=== PATIENT | female | born 1990 | race Caucasian/White ===

== ENCOUNTER 2019-08-26 00:23 | Emergency (ER) | payer SELFPAY ==
[2019-08-26] MEDS ORDERED: NA CHLORIDE 0.9% 1,000 ML ONE (00:31)
[2019-08-26] MEDS ORDERED: FAMOTIDINE 20 MG/2 ML VIAL IV ONE (00:31)
[2019-08-26] MEDS ORDERED: METHYLPREDNISOLONE 125 MG INJ ONE (00:31)
[2019-08-26] MEDS ORDERED: DIPHENHYDRAMINE 50 MG/ML VIAL ONE (00:31)
[2019-08-26] MEDS ORDERED: ALBUTEROL 2.5 MG/3 ML NEB SOL ONE (00:31)
[2019-08-26] MEDS ORDERED: IPRATROPIUM BROM 0.5MG/2.5ML ONE (00:32)
--- NOTE | 2019-08-26 01:01 | EDPHYS ---
Physician Documentation [facility] Name: Jessika Avila Age: 28 yrs Sex: Female : 1990 Arrival Date: 08/26/2019 Time: 00:27 Bed 6 Private MD: ED Physician Delfino Victoria HPI: 08/26 00:45 This 28 yrs old Female presents to ER via Ambulatory with complaints of allergic cp reaction. 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 - Social history:: Smoking status: Patient uses tobacco products, smokes one pack cigarettes per day. Patient uses alcohol, occasionally. Patient/guardian denies using street drugs. - Ebola Screening: : Patient negative for fever greater than or equal to 101.5 degrees Fahrenheit, and additional compatible Ebola Virus Disease symptoms Patient denies exposure to infectious person Patient denies travel to an Ebola-affected area in the 21 days before illness onset. Vital Signs: 00:23 BP 130 / 74; Pulse 88; Resp 18; Pulse Ox 100% on R/A; Weight 54.43 kg (R); Height 5 ft. fc 6 in. (167.64 cm) (R); Pain 9/10; 01:20 BP 115 / 75; Pulse 85; Resp 17; Temp 98; Pulse Ox 99% on R/A; rr5 00:23 Body Mass Index 19.37 (54.43 kg, 167.64 cm) MDM: 00:31 Patient medically screened. [facility] 08/26 00:34 Order name: IV; Complete Time: 00:38 cp Administered Medications: 00:20 Drug: NS 0.9% 1000 ml Route: IV; Rate: 1 bolus; Site: left antecubital; rr5 01:20 Follow up: Response: No adverse reaction; IV Status: Completed infusion; IV Intake: rr5 1000ml 00:21 Drug: Pepcid 20 mg Route: IVP; Site: left antecubital; rr5 01:20 Follow up: Response: No adverse reaction; Marked relief of symptoms rr5 00:23 Drug: Benadryl 50 mg Route: IVP; Site: left antecubital; rr5 01:20 Follow up: Response: No adverse reaction; Marked relief of symptoms rr5 00:25 Drug: Albuterol - atroVENT (3:1) (2.5 mg - 0.5 mg) 3 ml Route: Nebulizer; rr5 01:20 Follow up: Response: No adverse reaction; Marked relief of symptoms rr5 00:39 Drug: SOLU-Medrol 125 mg Route: IVP; Site: left antecubital; rr5 01:20 Follow up: Response: No adverse reaction; Marked relief of symptoms rr5 Disposition: 08/26/19 01:00 Discharged to Home. Impression: Allergy, unspecified. - Condition is Stable. - Discharge Instructions: Anaphylactic Reaction, Adult. - Prescriptions for Albuterol Sulfate 90 mcg/actuation - inhale 1-2 puff by INHALATION route every 4-6 hours; 1 Inhaler. Prednisone 20 mg Oral Tablet - take 2 tablet by ORAL route once daily for 5 days; 10 tablet. Pepcid 20 mg Oral Tablet - take 1 tablet by ORAL route 2 times per day for 5 days; 10 tablet. EpiPen 0.3 mg Injection auto- injector - inject 1 pen by INTRAMUSCULAR route as directed Inject into the outer portion of the thigh, through clothing if necessary. Indicated in the emergency treatment of allergic reactions; 2 Kit. - Medication Reconciliation Form, Thank You Letter, Antibiotic Education, Prescription Opioid Use, Work release form form. - Follow up: Private Physician; When: 1 - 2 days; Reason: Worsening of condition. - Problem is new. - Symptoms have improved. Addendum: 08/27/2019 07:55 Co-signature as Attending Physician, Delfino Victoria MD I agree with the assessment and c estrada plan of care. Signatures: Delfino Victoria MD MD cha Chretien, Felicia RN RN Delfino Lopez PA PA cp Roque, Raymond, RN RN rr5 Corrections: (The following items were deleted from the chart) 08/26 01:28 01:00 08/26/2019 01:00 Discharged to Home. Impression: Allergy, unspecified. Condition rr5 is Stable. Forms are Medication Reconciliation Form, Thank You Letter, Antibiotic Education, Prescription Opioid Use. Follow up: Private Physician; When: 1 - 2 days; Reason: Worsening of condition. Problem is new. Symptoms have improved. cp
--- NOTE | 2019-08-26 01:01 | ER ---
Nurse's Notes [facility] Name: Jessika Avila Age: 28 yrs Sex: Female : 1990 Arrival Date: 08/26/2019 Time: 00:27 Bed 6 Private MD: Diagnosis: Allergy, unspecified Presentation: 08/26 00:23 Presenting complaint: Patient states: that she was drinking with some friends and then fc started to have hives, sore and swelling throat and shortness of breath. Transition of care: patient was not received from another setting of care. Onset of symptoms was August 26, 2019 at 00:10. Risk Assessment: Do you want to hurt yourself or someone else? Patient reports no desire to harm self or others. Initial Sepsis Screen: Does the patient meet any 2 criteria? No. Patient's initial sepsis screen is negative. Does the patient have a suspected source of infection? No. Patient's initial sepsis screen is negative. Care prior to arrival: None. 00:23 Method Of Arrival: Ambulatory fc 00:23 Acuity: GUME 3 Triage Assessment: 00:25 Respiratory: the patient has mild shortness of breath. 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 - Social history:: Smoking status: Patient uses tobacco products, smokes one pack cigarettes per day. Patient uses alcohol, occasionally. Patient/guardian denies using street drugs. - Ebola Screening: : Patient negative for fever greater than or equal to 101.5 degrees Fahrenheit, and additional compatible Ebola Virus Disease symptoms Patient denies exposure to infectious person Patient denies travel to an Ebola-affected area in the 21 days before illness onset. Screenin:23 Abuse screen: Denies threats or abuse. Nutritional screening: No deficits noted. fc Tuberculosis screening: No symptoms or risk factors identified. Fall Risk None identified. Assessment: 00:25 General: Appears in no apparent distress. uncomfortable, Behavior is calm, cooperative, rr5 appropriate for age, Reports i had a few drinks suddenly i feel like hives and i can't breath. Pain: Complains of pain in throat Pain does not radiate. Pain currently is 9 out of 10 on a pain scale. Quality of pain is described as aching, Pain began suddenly, Is continuous. Neuro: Level of Consciousness is awake, alert, obeys commands, Oriented to person, place, time, situation, Appropriate for age. Cardiovascular: Capillary refill < 3 seconds Patient's skin is warm and dry. Rhythm is regular. Respiratory: Reports I can't breath and Airway is patent Respiratory effort is even, unlabored, Respiratory pattern is regular, symmetrical, Breath sounds are clear. GI: No signs and/or symptoms were reported involving the gastrointestinal system. : No signs and/or symptoms were reported regarding the genitourinary system. EENT: Throat is clear with gag reflex present, Reports difficulty swallowing feels like my throat is swollen. 00:25 Derm: Skin is intact, is healthy with good turgor, Skin is red, on the face and rr5 extremities. Skin temperature is warm. Musculoskeletal: Circulation, motion, and sensation intact. Capillary refill < 3 seconds. 01:22 Reassessment: Patient appears in no apparent distress at this time. Patient is alert, rr5 oriented x 3, equal unlabored respirations, skin warm/dry/pink. discharge instruction given and explained without complaints made, verbalized understanding. Patient states feeling better. Patient states symptoms have improved. Vital Signs: 00:23 BP 130 / 74; Pulse 88; Resp 18; Pulse Ox 100% on R/A; Weight 54.43 kg (R); Height 5 ft. fc 6 in. (167.64 cm) (R); Pain 9/10; 01:20 BP 115 / 75; Pulse 85; Resp 17; Temp 98; Pulse Ox 99% on R/A; rr5 00:23 Body Mass Index 19.37 (54.43 kg, 167.64 cm) ED Course: 00:23 No provider procedures requiring assistance completed. 00:23 Arm band placed on Patient placed in an exam room, on a stretcher. 00:23 Patient has correct armband on for positive identification. Placed in gown. Bed in low fc position. Call light in reach. Pulse ox on. NIBP on. 00:27 Patient arrived in ED. 00:27 Inserted saline lock: 20 gauge in left antecubital area, using aseptic technique. fc ,using aseptic technique. per Pawel VASQUEZ. 00:31 Delfino Bryant PA is PHCP. cp 00:31 Delfino Victoria MD is Attending Physician. cp 00:35 Triage completed. fc 00:38 Pawel Kenney RN is Primary Nurse. rr5 01:27 IV discontinued, intact, bleeding controlled, No redness/swelling at site. Pressure rr5 dressing applied. Administered Medications: 00:20 Drug: NS 0.9% 1000 ml Route: IV; Rate: 1 bolus; Site: left antecubital; rr5 01:20 Follow up: Response: No adverse reaction; IV Status: Completed infusion; IV Intake: rr5 1000ml 00:21 Drug: Pepcid 20 mg Route: IVP; Site: left antecubital; rr5 01:20 Follow up: Response: No adverse reaction; Marked relief of symptoms rr5 00:23 Drug: Benadryl 50 mg Route: IVP; Site: left antecubital; rr5 01:20 Follow up: Response: No adverse reaction; Marked relief of symptoms rr5 00:25 Drug: Albuterol - atroVENT (3:1) (2.5 mg - 0.5 mg) 3 ml Route: Nebulizer; rr5 01:20 Follow up: Response: No adverse reaction; Marked relief of symptoms rr5 00:39 Drug: SOLU-Medrol 125 mg Route: IVP; Site: left antecubital; rr5 01:20 Follow up: Response: No adverse reaction; Marked relief of symptoms rr5 Intake: 01:20 IV: 1000ml; Total: 1000ml. rr5 Outcome: 01:00 Discharge ordered by . cp 01:27 Discharged to home ambulatory. rr5 01:27 Condition: stable 01:27 Discharge instructions given to patient, Instructed on discharge instructions, follow up and referral plans. medication usage, Demonstrated understanding of instructions, follow-up care, medications, Prescriptions given X 4. 01:28 Patient left the ED. rr5 Signatures: Lesly Martinez RN RN Delfino Bryant PA PA cp Roque, Raymond, RN RN rr5 Corrections: (The following items were deleted from the chart) 01:27 00:25 Pain: Denies pain. rr5 rr5
[2019-08-26 02:31] VITALS: BP 130/74; O2SAT 100
--- OUTSIDE RECORDS SUMMARY | 2019-09-02 20:08 | XMS REPORT ---
:1990 [facility] Address [address] [place] [address] Dr. Medina [address] [place] [id number] Care Team Providers Name Role Phone Unavailable Unavailable Unavailable Problems This patient has no known problems. Allergies, Adverse Reactions, Alerts This patient has no known allergies or adverse reactions. Medications This patient has no known medications.
== END 2019-08-26 01:28 | disposition home or self-care (01) ==
LOC: ER 00:23
DX: T78.40XA Allergy, unspecified, initial encounter (principal); Z91.030 Bee allergy status; F17.210 Nicotine dependence, cigarettes, uncomplicated
CPT/HCPCS: 94640; 96361; 96374; 96375; 99284; J1200; J2930; J7030

== ENCOUNTER 2019-11-04 19:29 | Emergency (ER) | payer SELFPAY ==
--- OUTSIDE RECORDS SUMMARY | 2019-11-04 19:30 | XMS REPORT ---
:1990 [facility] Address [address] [place] [address] Dr. Medina [address] [place] [id number] Care Team Providers Name Role Phone Unavailable Unavailable Unavailable Problems This patient has no known problems. Allergies, Adverse Reactions, Alerts This patient has no known allergies or adverse reactions. Medications This patient has no known medications.
[2019-11-04 20:07] LABS: Urine Blood NEGATIVE (NEG); Urine Glucose NEGATIVE (NEG); Urine Protein NEGATIVE (NEG); Urine Specific Gravity 1.025 (1.005-1.030); Urine pH 5.5 (5.0-7.0)
[2019-11-04] MEDS ORDERED: ONDANSETRON 4 MG/2 ML VIAL ONE (20:24)
[2019-11-04] MEDS ORDERED: NA CHLORIDE 0.9% 1,000 ML ONE (20:24)
[2019-11-04] MEDS ORDERED: MORPHINE 4 MG/ML SYR ONE (20:24)
[2019-11-04 20:28] LABS: Absolute Lymphocytes (CBC) 1.6 K/uL (0.7-4.9); Basophils % 0.5 % (0-1.3); Hematocrit 37.8 % (36.0-45.0); Lymphocytes % 30.2 % (15.3-44.8); MPV 10.1 fL (7.6-11.3); RBC Red Blood Cell Count 4.18 M/uL (3.86-4.86)
--- NOTE | 2019-11-04 20:36 | RAD REPORT ---
EXAM DESCRIPTION: CTAbdomen Pelvis W Contrast - 11/04/2019 8:28 pm CLINICAL HISTORY: Abdominal pain. ABD PAIN COMPARISON: No comparisons TECHNIQUE: Biphasic CT imaging of the abdomen and pelvis was performed with 100 ml non-ionic IV cont rast. All CT scans are performed using dose optimization technique as appropriate and may include automated exposure control or mA/KV adjustment according to patient size. FINDINGS: The lung bases are clear. The liver demonstrates a 10 mm low-density lesion in the inferior anterior right lobe of the liver, n onspecific but likely benign. No aggressive liver lesion or biliary dilatation. Spleen, pancreas, adr enal glands and kidneys are within normal limits. No bowel obstruction, free air, free fluid or abscess. The appendix is normal. No evidence of signi ficant lymphadenopathy. 5 cm right ovarian cyst is suspected. Trace pelvic free fluid is seen. No suspicious bony findings. IMPRESSION: 5 cm right ovarian cyst is suspected with trace pelvic free fluid.
[2019-11-04 20:46] LABS: ALT/SGPT 137 U/L (12-78); AST/SGOT 52 U/L (15-37); Albumin 4.3 g/dL (3.4-5.0); Alkaline Phosphatase 43 U/L (45-117); BUN Blood Urea Nitrogen 13 mg/dL (7-18); Bicarbonate 29 mmol/L (21-32); Bilirubin Direct < 0.1 mg/dL (0-0.2); Bilirubin Total 0.4 mg/dL (0.2-1.0); Glucose Level 82 mg/dL (74-106); Lipase 66 U/L (73-393); Potassium 3.8 mmol/L (3.5-5.1); Protein, Total 7.9 g/dL (6.4-8.2); Sodium Level 138 mmol/L (136-145)
--- NOTE | 2019-11-04 20:54 | EDPHYS ---
Physician Documentation [facility] Name: Jessika Avila Age: 28 yrs Sex: Female : 1990 Arrival Date: 11/04/2019 Time: 19:[address] Private MD: ED Physician Nicholas Layton HPI: 11/04 20:12 This 28 yrs old Female presents to ER via Ambulatory with complaints of Back kb Pain. 20:12 The patient presents with abdominal pain that is diffuse. Onset: The symptoms/episode kb began/occurred 3 week(s) ago, and became worse 3 day(s) ago. The symptoms radiate to back. Associated signs and symptoms: Pertinent positives: dysuria, nausea. The symptoms are described as intermittent. Modifying factors: The symptoms are alleviated by nothing, the symptoms are aggravated by nothing. Severity of pain: At its worst the pain was moderate in the emergency department the pain is unchanged. The patient has not experienced similar symptoms in the past. The patient has not recently seen a physician. 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 - Social history:: Smoking status: Patient/guardian denies using tobacco. - Ebola Screening: : Patient denies travel to an Ebola-affected area in the 21 days before illness onset. ROS: 20:11 Constitutional: Negative for fever, chills, and weight loss, Neck: Negative for injury, kb pain, and swelling, Cardiovascular: Negative for chest pain, palpitations, and edema, Respiratory: Negative for shortness of breath, cough, wheezing, and pleuritic chest pain, Back: Negative for injury and pain, MS/Extremity: Negative for injury and deformity, Skin: Negative for injury, rash, and discoloration, Neuro: Negative for headache, weakness, numbness, tingling, and seizure. 20:11 Abdomen/GI: Positive for abdominal pain, nausea. 20:12 : Positive for burning with urination. kb Exam: 20:11 Constitutional: This is a well developed, well nourished patient who is awake, alert, kb and in no acute distress. Head/Face: Normocephalic, atraumatic. Neck: Trachea midline, no thyromegaly or masses palpated, and no cervical lymphadenopathy. Supple, full range of motion without nuchal rigidity, or vertebral point tenderness. No Meningismus. Chest/axilla: Normal chest wall appearance and motion. Nontender with no deformity. No lesions are appreciated. Cardiovascular: Regular rate and rhythm with a normal S1 and S2. No gallops, murmurs, or rubs. Normal PMI, no JVD. No pulse deficits. Respiratory: Lungs have equal breath sounds bilaterally, clear to auscultation and percussion. No rales, rhonchi or wheezes noted. No increased work of breathing, no retractions or nasal flaring. Back: No spinal tenderness. No costovertebral tenderness. Full range of motion. Skin: Warm, dry with normal turgor. Normal color with no rashes, no lesions, and no evidence of cellulitis. MS/ Extremity: Pulses equal, no cyanosis. Neurovascular intact. Full, normal range of motion. Neuro: Awake and alert, GCS 15, oriented to person, place, time, and situation. Cranial nerves II-XII grossly intact. Motor strength 5/5 in all extremities. Sensory grossly intact. Cerebellar exam normal. Normal gait. 20:11 Abdomen/GI: Inspection: abdomen appears normal, Bowel sounds: normal, in all quadrants, Palpation: soft, in all quadrants, moderate abdominal tenderness, in the right lower quadrant. Vital Signs: 19:42 BP 121 / 80; Pulse 97; Resp 18; Temp 97.9; Pulse Ox 100% on R/A; Weight 61.23 kg (R); aj1 Height 5 ft. 6 in. (167.64 cm) (R); Pain 10/10; 19:42 Body Mass Index 21.79 (61.23 kg, 167.64 cm) aj1 MDM: 19:43 Data reviewed: vital signs, nurses notes. Data interpreted: Pulse oximetry: on room air kb is 100 %. Interpretation: normal. 19:45 Patient medically screened. kb 20:52 Counseling: I had a detailed discussion with the patient and/or guardian regarding: the kb historical points, exam findings, and any diagnostic results supporting the discharge/admit diagnosis, lab results, radiology results, the need for outpatient follow up, an OB/Gyne specialist, to return to the emergency department if symptoms worsen or persist or if there are any questions or concerns that arise at home. 11/04 20:01 Order name: Urine --Ancillary (enter results); Complete Time: 20:08 kb 11/04 20:01 Order name: Urine Dipstick--Ancillary (enter results); Complete Time: 20:08 kb 11/04 20:01 Order name: Basic Metabolic Panel; Complete Time: 20:52 kb 11/04 20:01 Order name: CBC with Diff; Complete Time: 20:32 kb 11/04 20:01 Order name: Hepatic Function; Complete Time: 20:52 kb 11/04 20:01 Order name: Lipase; Complete Time: 20:52 kb 11/04 19:42 Order name: Urine Dipstick-Ancillary (obtain specimen); Complete Time: 20:24 kb 11/04 20:01 Order name: IV Saline Lock; Complete Time: 20:24 kb 11/04 20:01 Order name: Labs collected and sent; Complete Time: 20:24 kb 11/04 20:02 Order name: CT Abd/Pelvis - IV Contrast Only; Complete Time: 20:38 kb 11/04 20:02 Order name: Urine Microscopic Only; Complete Time: 21:08 kb Administered Medications: 20:39 Drug: NS 0.9% 1000 ml Route: IV; Rate: 1000 ml; Site: right forearm; mg2 21:17 Follow up: Response: No adverse reaction; IV Status: Completed infusion mg2 20:39 Drug: Zofran 4 mg Route: IVP; Site: right forearm; mg2 21:16 Follow up: Response: No adverse reaction; Marked relief of symptoms mg2 20:39 Drug: morphine 4 mg Route: IVP; Site: right forearm; mg2 21:16 Follow up: Response: No adverse reaction; Marked relief of symptoms mg2 Disposition: 11/05 07:03 Co-signature as Attending Physician, Nicholas Layton MD. rn Disposition: 11/04/19 20:53 Discharged to Home. Impression: Unspecified ovarian cysts. - Condition is Stable. - Discharge Instructions: Ovarian Cyst, [id number]. - Prescriptions for Diclofenac Sodium 75 mg Oral Tablet, Delayed Release (E.C.) - take 1 tablet by ORAL route 2 times per day As needed; 30 tablet. - Medication Reconciliation Form, Thank You Letter, Antibiotic Education, Prescription Opioid Use, Work release form form. - Follow up: Emergency Department; When: As needed; Reason: Worsening of condition. Follow up: Private Physician; When: 2 - 3 days; Reason: Recheck today's complaints, Continuance of care, Re-evaluation by your physician. Signatures: Dispatcher [employer] EDMS Lali Juarez, COMPLIANCE NURSE-C COMPLIANCE NURSE-CkLala Ojeda RN RN aj1 Nicholas Layton MD MD rn Gardose, Michele, RN RN mg2 Corrections: (The following items were deleted from the chart) 11/04 20:12 20:11 Constitutional: Negative for fever, chills, and weight loss, Neck: Negative for kb injury, pain, and swelling, Cardiovascular: Negative for chest pain, palpitations, and edema, Respiratory: Negative for shortness of breath, cough, wheezing, and pleuritic chest pain, Back: Negative for injury and pain, MS/Extremity: Negative for injury and deformity, Skin: Negative for injury, rash, and discoloration, Neuro: Negative for headache, weakness, numbness, tingling, and seizure, kb 21:18 20:53 11/04/2019 20:53 Discharged to Home. Impression: Unspecified ovarian cysts. mg2 Condition is Stable. Forms are Medication Reconciliation Form, Thank You Letter, Antibiotic Education, Prescription Opioid Use. Follow up: Emergency Department; When: As needed; Reason: Worsening of condition. Follow up: Private Physician; When: 2 - 3 days; Reason: Recheck today's complaints, Continuance of care, Re-evaluation by your physician. kb
--- NOTE | 2019-11-04 20:54 | ER ---
Nurse's Notes [facility] Name: Jessika Avila Age: 28 yrs Sex: Female : 1990 Arrival Date: 11/04/2019 Time: 19:[address] Private MD: Diagnosis: Unspecified ovarian cysts Presentation: 11/04 19:41 Presenting complaint: Patient states: "Im having severe pain, it started on [place], aj1 and then it went away, it came back a few days ago its radiating from the back to the front and I keep having the urge to pee". Transition of care: patient was not received from another setting of care. Onset of symptoms was November 04, 2019. Risk Assessment: Do you want to hurt yourself or someone else? Patient reports no desire to harm self or others. Initial Sepsis Screen: Does the patient meet any 2 criteria? No. Patient's initial sepsis screen is negative. Does the patient have a suspected source of infection? No. Patient's initial sepsis screen is negative. Care prior to arrival: None. 19:41 Method Of Arrival: Ambulatory [facility] 19:41 Acuity: GUME 3 aj Triage Assessment: 19:42 General: Appears in no apparent distress. comfortable, Behavior is calm, cooperative, aj1 appropriate for age. Pain: Complains of pain in back. Neuro: Level of Consciousness is awake, alert, obeys commands. Cardiovascular: Patient's skin is warm and dry. Respiratory: Airway is patent Respiratory effort is even, unlabored, Respiratory pattern is regular, symmetrical. Musculoskeletal: Range of motion: intact in all extremities. 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 - Social history:: Smoking status: Patient/guardian denies using tobacco. - Ebola Screening: : Patient denies travel to an Ebola-affected area in the 21 days before illness onset. Screenin:25 Abuse screen: Denies threats or abuse. Denies injuries from another. Nutritional mg2 screening: No deficits noted. Tuberculosis screening: No symptoms or risk factors identified. Fall Risk IV access (20 points). Assessment: 20:26 General: Appears in no apparent distress. comfortable, Behavior is calm, cooperative. mg2 Pain: Complains of pain in right lower quadrant and back Pain does not radiate. Pain currently is 4 out of 10 on a pain scale. Quality of pain is described as aching, Pain began gradually, since carlyle Is intermittent. Neuro: Level of Consciousness is awake, alert, obeys commands, Oriented to person, place, time, situation. Cardiovascular: Capillary refill < 3 seconds Patient's skin is warm and dry. Respiratory: Airway is patent Respiratory effort is even, unlabored, Respiratory pattern is regular, symmetrical. GI: Reports lower abdominal pain, nausea, vomiting. : Reports pain in lower back urinary frequency. EENT: No signs and/or symptoms were reported regarding the EENT system. Derm: Skin is intact, is healthy with good turgor, Skin is pink, warm \\T\\ dry. normal. Musculoskeletal: Circulation, motion, and sensation intact. Capillary refill < 3 seconds. 21:17 Reassessment: Patient appears in no apparent distress at this time. Patient states mg2 feeling better. Vital Signs: 19:42 BP 121 / 80; Pulse 97; Resp 18; Temp 97.9; Pulse Ox 100% on R/A; Weight 61.23 kg (R); aj1 Height 5 ft. 6 in. (167.64 cm) (R); Pain 10/10; 19:42 Body Mass Index 21.79 (61.23 kg, 167.64 cm) aj1 ED Course: 19:13 Inserted saline lock: 20 gauge in right forearm, using aseptic technique. Blood mg2 collected. 19:31 Patient arrived in ED. jg7 19:42 Triage completed. aj1 19:42 [facility]ali Juarez F[facility]-C [facility] kb 19:42 Nicholas Layton MD is Attending Physician. kb 19:42 Arm band placed on Patient placed in an exam room. aj1 20:25 Leonid Vega, PEDRO is Primary Nurse. mg2 20:25 No provider procedures requiring assistance completed. mg2 20:27 Patient has correct armband on for positive identification. Pulse ox on. NIBP on. Door mg2 closed. Warm blanket given. 20:27 Placed in gown. Bed in low position. Call light in reach. Side rails up X2. mg2 20:28 CT Abd/Pelvis - IV Contrast Only In Process Unspecified. EDMS 20:28 CT completed. Patient tolerated procedure well. Patient moved back from CT. bq 21:17 IV discontinued, intact, bleeding controlled, No redness/swelling at site. Pressure mg2 dressing applied. Administered Medications: 20:39 Drug: NS 0.9% 1000 ml Route: IV; Rate: 1000 ml; Site: right forearm; mg2 21:17 Follow up: Response: No adverse reaction; IV Status: Completed infusion mg2 20:39 Drug: Zofran 4 mg Route: IVP; Site: right forearm; mg2 21:16 Follow up: Response: No adverse reaction; Marked relief of symptoms mg2 20:39 Drug: morphine 4 mg Route: IVP; Site: right forearm; mg2 21:16 Follow up: Response: No adverse reaction; Marked relief of symptoms mg2 Outcome: 20:53 Discharge ordered by . kb 21:18 Discharged to home ambulatory. mg2 21:18 Condition: stable 21:18 Discharge instructions given to patient, Instructed on discharge instructions, follow up and referral plans. medication usage, Demonstrated understanding of instructions, follow-up care, medications, Prescriptions given X 1. 21:18 Patient left the ED. mg2 Signatures: Dispatcher [employer] EDMS Lali Juarez, FRAME CATCHER-C FRAME CATCHER-Lala Gama, RN RN Arina Bolden Michele, RN RN mg2 Maday [id number]
[2019-11-04 21:07] LABS: Urine Bacteria <20 /HPF (<20); Urine Culture Reflex Order NOT NEEDED; Urine RBC NONE SEEN /HPF (NONE SEEN)
[2019-11-04 21:34] VITALS: BP 121/80; TEMP 97.9; O2SAT 100
== END 2019-11-04 21:18 | disposition home or self-care (01) ==
LOC: ER 19:29
DX: N83.209 Unspecified ovarian cyst, unspecified side (principal)
CPT/HCPCS: 36415; 74177; 80048; 80076; 81003; 81015; 81025; 83690; 85025; 96361; 96374; 96375; 99284; J2405; J7030; Q9967